=== PATIENT | male | born 1995 | race Caucasian/White ===

== ENCOUNTER 2020-07-24 17:51 | Emergency (ER) | payer SELFPAY ==
[~2020-07-24] VITALS: Ht 175.3 cm; Wt 82.8 kg
[2020-07-24] MEDS ORDERED: IBUPROFEN 200 MG TABLET PO ONE (18:30)
[2020-07-24] MEDS ORDERED: IBUPROFEN 200 MG TABLET ONE (18:49)
--- NOTE | 2020-07-24 19:12 | NUR ---
PT TO ED WITH RIGHT ANKLE PAIN X3 DAYS DUE TO "WALKING ALOT" PT REPORTS CURRENT HOMELESSNESS WITH AMBULATION MAIN FORM OF TRANSPORTATION. PT RESTING ON GURNEY, MEDICATED PER JAN, CALL LIGHT WITHIN REACH.
[2020-07-24 20:00] VITALS: BP 122/76
== END 2020-07-24 20:07 | disposition home or self-care (01) ==
LOC: ED 18:51
DX: S93.401A Sprain of unspecified ligament of right ankle, initial encounter (principal); S93.601A Unspecified sprain of right foot, initial encounter; F17.200 Nicotine dependence, unspecified, uncomplicated; Z59.0 Homelessness; X58.XXXA Exposure to other specified factors, initial encounter; Y93.89 Activity, other specified; Y92.488 Other paved roadways as the place of occurrence of the external cause; Y99.8 Other external cause status
CPT/HCPCS: 99284

== ENCOUNTER 2020-08-06 09:04 | Emergency (ER) | payer SELFPAY ==
[~2020-08-06] VITALS: Ht 175.3 cm; Wt 82.6 kg
[2020-08-06 09:09] VITALS: BP 135/62
--- NOTE | 2020-08-06 09:14 | NUR ---
[employer]: PT DECLINED WHEELCHAIR. AMBULATORY W/ A STEADY GAIT BACK TO ROOM.
[2020-08-06] MEDS ORDERED: IBUPROFEN 600 MG TABLET PO ONE (09:30)
[2020-08-06] MEDS ORDERED: NEOSPORIN OINT. PKT 1 PACKET ONE (09:35)
[2020-08-06] MEDS ORDERED: IBUPROFEN 600 MG TABLET ONE (10:00)
--- NOTE | 2020-08-06 10:14 | NUR ---
pt has dried skin to right ankle, pt c/o pain with ankle movement. pain has been present x 3 weeks. pt seen and examined by rekha Newman dressing to right ankle. advised pt to stop wearing ankle brace. pt is able to ambulate without diffiuclty, no limp. pt given dc instructions and script, jaquelin at ct.
== END 2020-08-06 10:18 | disposition home or self-care (01) ==
LOC: ED 10:05
DX: S90.811A Abrasion, right foot, initial encounter (principal); Z59.0 Homelessness; X58.XXXA Exposure to other specified factors, initial encounter; Y93.89 Activity, other specified; Y92.488 Other paved roadways as the place of occurrence of the external cause; Y99.8 Other external cause status
CPT/HCPCS: 99282

== ENCOUNTER 2020-11-04 12:12 | Emergency (ER) | payer SELFPAY ==
[~2020-11-04] VITALS: Ht 175.3 cm; Wt 82.0 kg
[2020-11-04 12:22] VITALS: BP 120/52
[2020-11-04] MEDS ORDERED: NEOSPORIN OINT. PKT 1 PACKET ONE (12:34)
--- NOTE | 2020-11-04 13:19 | NUR ---
task rn- discharge instructions reviewed
== END 2020-11-04 13:21 | disposition home or self-care (01) ==
LOC: ED 13:15
DX: S60.221A Contusion of right hand, initial encounter (principal); F17.200 Nicotine dependence, unspecified, uncomplicated; W22.8XXA Striking against or struck by other objects, initial encounter; Y93.89 Activity, other specified; Y92.488 Other paved roadways as the place of occurrence of the external cause; Y99.8 Other external cause status
CPT/HCPCS: 99283

== ENCOUNTER 2020-11-10 04:10 | Emergency (ER) | payer SELFPAY ==
[~2020-11-10] VITALS: Ht 175.3 cm; Wt 82.4 kg
[2020-11-10 04:18] VITALS: BP 128/67
[2020-11-10] MEDS ORDERED: KETOROLAC 30 MG/1 ML ONE (04:48)
[2020-11-10] MEDS ORDERED: KETOROLAC 30 MG/1 ML IM ONE (05:00)
== END 2020-11-10 06:37 | disposition home or self-care (01) ==
LOC: ED 05:56
DX: S90.31XA Contusion of right foot, initial encounter (principal); F17.290 Nicotine dependence, other tobacco product, uncomplicated; X50.1XXA Overexertion from prolonged static or awkward postures, initial encounter; Y93.89 Activity, other specified; Y92.098 Other place in other non-institutional residence as the place of occurrence of the external cause; Y99.8 Other external cause status
CPT/HCPCS: 73630; 96372; 99283; J1885